=== PATIENT | female | born 1990 | race Caucasian/White ===

== ENCOUNTER → 2024-12-01 14:47 | Outpatient (CLI) | payer OTHER, SELFPAY ==
--- NOTE | 2024-12-01 14:53 | DI.RAD.S_ITS ---
PROCEDURE: XR LUMBAR SPINE MIN 4V INDICATIONS: LOW BACK PAIN TECHNIQUE: 5 views of the lumbar spine acquired, including flexion and extension views. COMPARISON: None. FINDINGS: Lumbar spine curvature and alignment: Slight rightward curve appreciated. Bones: There are no osseous abnormalities. Disc spaces: Normal in height without significant degeneration. Intervertebral foramen: Grossly normal in width. Soft tissues: No soft tissue swelling, calcification or mass. IMPRESSION: Slight rightward curve otherwise negative Dictated by: Kevin Duncan M.D. on 12/02/2024 at 6:46 Approved by: Kevin Duncan M.D. on 12/02/2024 at 6:47
== END ==
PROVIDERS: PCP Family Medicine; Referring Provider Family Medicine; Visit Provider Family Medicine
DX: M54.50 Low back pain, unspecified (principal); M54.2 Cervicalgia; G89.29 Other chronic pain
CPT/HCPCS: 72110